=== PATIENT | female | born 2005 | race Caucasian/White ===

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

== ENCOUNTER 2024-04-17 09:40 | Inpatient (IN) | payer OTHER ==
[2024-04-17 11:21] VITALS: BMI 35.1
[2024-04-17] MEDS: ELECTROLYTE-148 SOLN 500 ML IV ONE (11:50)
[2024-04-17] MEDS: ELECTROLYTE-148 SOLN 500 ML IV SCH (12:25)
[2024-04-17] MEDS: CITRIC ACID/SODIUM CITRATE 30 ML UNIT-DOSE CUP PO ONE (14:48)
[2024-04-17] MEDS ORDERED: OXYTOCIN 30 UNITS in 0.9% NS 30 UNIT/500 ML INFUS.BAG IVPB ONE (15:48)
[2024-04-17] MEDS ORDERED: morphine SULFATE/PF 1 MG/2 ML (2cc Syringe - QUVA) ONE (15:53)
[2024-04-17] MEDS ORDERED: FENTANYL CITRATE/PF 50 MCG/ML VIAL ONE (15:54)
[2024-04-17] MEDS ORDERED: ONDANSETRON 4 MG/2 ML VIAL ONE (16:02)
[2024-04-17] MEDS ORDERED: ceFAZolin SODIUM 1 GM VIAL ONE (16:07)
[2024-04-17] MEDS ORDERED: METHYLERGONOVINE MALEATE 0.2 MG/1 ML AMP IM PRN (17:09)
[2024-04-17] MEDS ORDERED: ACETAMINOPHEN 325 MG TABLET (FP) PO PRN (17:09)
[2024-04-17] MEDS ORDERED: ACETAMINOPHEN INJECTION 100 ML IVPB ONE (18:15)
[2024-04-17] MEDS: ACETAMINOPHEN 1000 MG/100 ML BAG IVPB ONE (18:22)
[2024-04-17] MEDS: IBUPROFEN 600 MG TABLET (FP) PO PRN (20:49)
[2024-04-17] MEDS: SIMETHICONE 80 MG TAB.CHEW (FP) PO PRN (20:49)
[2024-04-17] MEDS: OXYTOCIN 20 UNITS in 0.9% NS 20 UNIT/1,000 ML INFUS.BAG IV SCH (21:59)
[2024-04-17] MEDS: ALBUTEROL SO4 HFA INHALER IH PRN (22:37)
[2024-04-17] MEDS: ONDANSETRON 4 MG/2 ML VIAL IVPUSH PRN (23:32)
[2024-04-17] MEDS: IBUPROFEN 800 MG/8 ML IJ IVPB PRN (23:59)
[2024-04-18 07:35] LABS: BASO % 0.5 % (0-2.0); EOS % 0.6 % (0-4.5); HEMATOCRIT 31.2 % (32.4-45.2); HEMOGLOBIN 9.8 GM/dL (10.7-15.3); LYMPH % 10.5 % (8-40); MCH 24.1 pg (25.7-33.7); MCHC 31.5 g/dl (32.0-36.0); MEAN CELL VOLUME 76.4 fl (80-96); MEAN PLT VOLUME 8.1 fl (7.5-11.1); MONO % 4.1 % (3.8-10.2); NEUT % 84.3 % (42.8-82.8); PLATELET COUNT 349 10^3/uL (134-434); RBC 4.09 M/mm3 (3.60-5.2); RDW 16.4 % (11.6-15.6); WHITE BLOOD COUNT 11.4 K/mm3 (4.0-10.0)
[2024-04-18] MEDS ORDERED: DIPHTH,PERTUSS(ACELL),TET 0.5 ML DISP.SYRIN IM ONE (10:00)
[2024-04-18] MEDS ORDERED: BISACODYL 10 MG SUPP.RECT RC PRN (17:09)
[2024-04-19] MEDS: oxyCODONE HCL 5 MG TABLET PO PRN ×2 (07:20→16:13)
[2024-04-19] MEDS: DIPHTH,PERTUSS(ACELL),TET 0.5 ML DISP.SYRIN IM ONE (10:46)
[2024-04-19 23:03] VITALS: RESP 18
[2024-04-20 08:22] LABS: BASO % 0.9 % (0-2.0); HEMATOCRIT 31.6 % (32.4-45.2); HEMOGLOBIN 10.1 GM/dL (10.7-15.3); LYMPH % 17.5 % (8-40); MEAN CELL VOLUME 75.1 fl (80-96); MEAN PLT VOLUME 7.3 fl (7.5-11.1); MONO % 5.2 % (3.8-10.2); NEUT % 72.4 % (42.8-82.8); PLATELET COUNT 405 10^3/uL (134-434); RBC 4.21 M/mm3 (3.60-5.2); WHITE BLOOD COUNT 9.5 K/mm3 (4.0-10.0)
[2024-04-20 09:21] VITALS: BP 120/82; PULSE 70; TEMP 98.2
== END 2024-04-20 12:00 | disposition home or self-care (01) | DRG 540 ==
LOC: JLDR 09:40 → J3W 19:50
PROVIDERS: ADMIT Obstetrics & Gynecology Obstetrics; ATTEND Obstetrics & Gynecology Obstetrics
PROC: 10D00Z1 Extraction of Products of Conception, Low, Open Approach (ICD-10-PCS; principal; 2024-04-17)
DX: O34.219 Maternal care for unspecified type scar from previous cesarean delivery (principal); Z3A.39 39 weeks gestation of pregnancy; Z37.0 Single live birth
CPT/HCPCS: 36415; 59409; 85025; 88305-TC; 88307-TC; 90715; J0131

== ENCOUNTER 2024-05-12 07:14 | Emergency (ER) | payer OTHER ==
[2024-05-12 07:22] VITALS: BP 103/71; PULSE 63; RESP 20; TEMP 97.7; BMI 30.2
[2024-05-12] MEDS ORDERED: ALBUTEROL SO4 2.5/IPRATROPIUM 0.5 INH SOL 3 ML VIAL.NEB. NEB ONE (07:52)
[2024-05-12] MEDS: ALBUTEROL SO4 2.5/IPRATROPIUM 0.5 INH SOL 3 ML VIAL.NEB. NEB SCH (08:00)
== END 2024-05-12 08:39 | disposition home or self-care (01) ==
LOC: JER 07:14 → JERFT 07:14
PROC: 3E0F7GC Introduction of Other Therapeutic Substance into Respiratory Tract, Via Natural or Artificial Opening (ICD-10-PCS; principal; 2024-05-12)
DX: J45.901 Unspecified asthma with (acute) exacerbation (principal); R07.89 Other chest pain
CPT/HCPCS: 99283-25

== ENCOUNTER 2024-05-20 06:49 | Emergency (ER) | payer OTHER ==
[2024-05-20 06:54] VITALS: BP 105/56; PULSE 84; RESP 20; TEMP 99.3; BMI 29.9
[2024-05-20] MEDS ORDERED: DEXAMETHASONE 4 MG TABLET (FP) ONE (07:25)
[2024-05-20] MEDS ORDERED: ALBUTEROL SO4 2.5/IPRATROPIUM 0.5 INH SOL 3 ML VIAL.NEB. NEB ONE (07:25)
[2024-05-20] MEDS: ALBUTEROL SO4 2.5/IPRATROPIUM 0.5 INH SOL 3 ML VIAL.NEB. NEB SCH (07:28)
[2024-05-20] MEDS: DEXAMETHASONE 4 MG TABLET (FP) PO ONE (07:28)
== END 2024-05-20 08:21 | disposition home or self-care (01) ==
LOC: JER 06:49
PROC: 3E0F7GC Introduction of Other Therapeutic Substance into Respiratory Tract, Via Natural or Artificial Opening (ICD-10-PCS; principal; 2024-05-20)
DX: R06.02 Shortness of breath (principal); J45.901 Unspecified asthma with (acute) exacerbation; R05.9 Cough, unspecified
CPT/HCPCS: 99283-25